=== PATIENT | female | born 1985 | race Caucasian/White ===

== ENCOUNTER 2017-01-09 12:32 | Emergency (ER) | payer MEDICAID, OTHER, SELFPAY ==
[2017-01-09 12:55] VITALS: RESP 18; TEMP 99; O2SAT 100
[2017-01-09 13:07] VITALS: BMI 25.8
[2017-01-09] MEDS ORDERED: Sodium Chloride 0.9% 1,000 ML IV STA (13:13)
[2017-01-09 13:24] LABS: PH,URINE 5.5 (4.7-8.0); URINE BILIRUBIN NEGATIVE (NEGATIVE); URINE BLOOD MODERATE (NEGATIVE); URINE GLUCOSE (UA) NEGATIVE (NEGATIVE); URINE KETONE TRACE mg/dL (NEGATIVE); URINE LEUKOCYTE ESTERASE NEGATIVE Leu/uL (NEGATIVE); URINE PROTEIN TRACE mg/dL (<30 mg/dL); URINE UROBILINOGEN 0.2 E.U./dL (<1 E.U./dL)
[2017-01-09 13:28] LABS: URINE APPEARANCE CLOUDY (CLEAR); URINE COLOR YELLOW (YELLOW)
[2017-01-09 13:56] LABS: URINE BACTERIA MOD (NEG); URINE EPITHELIAL CELLS 0 - 2 /hpf (0-5)
[2017-01-09 13:57] LABS: URINE WBC 0 - 2 /hpf (0-6)
[2017-01-09 14:02] LABS: BASO # 0.02 K/mm3 (0.0-2.0); BASO % 0.2 % (0.0-3.0); EOS % 0.1 % (1.5-5.0); GRAN # 10.78 (1.4-6.5); GRAN % 82.7 % (50.0-68.0); HEMATOCRIT 38.5 % (36.0-48.0); LYMPH # 1.9 (1.2-3.4); LYMPH % 14.4 % (22.0-35.0); MEAN CELL VOLUME 86.1 fl (80.0-105.0); MEAN CORPUSCULAR HGB CONC 32.5 g/dl (31.0-37.0); MEAN PLATELET VOLUME 9.8 fl (7.0-11.0); MONO # 0.3 (0.1-0.6); MONO % 2.6 % (1.0-6.0); RED CELL DISTRIBUTION WIDTH 13.3 % (11.5-14.5)
[2017-01-09 14:25] LABS: ALB/GLOB RATIO 1.2 (1.1-1.8); ALKALINE PHOSPHATASE 62 U/L (38-126); ALT/SGPT 35 U/L (7-56); AST/SGOT 32 U/L (14-36); BILIRUBIN,TOTAL 0.5 mg/dL (0.2-1.3); BLOOD UREA NITROGEN 9 mg/dL (7-21); CALCIUM 9.6 mg/dL (8.4-10.5); CARBON DIOXIDE 23 mmol/L (21-33); CHLORIDE 106 mmol/L (98-107); GFR AFRICAN-AMERICAN > 60; GLUCOSE,RANDOM 103 mg/dL (70-110); POTASSIUM 4.2 mmol/L (3.6-5.0); SODIUM 141 mmol/L (132-148); TOTAL PROTEIN 8.2 g/dL (5.8-8.3)
[2017-01-09] MEDS ORDERED: Morphine 2 mg/ml ISec IVP STA (14:47)
--- NOTE | 2017-01-09 16:07 | ED PDOC ---
Arrival/HPI - General Chief Complaint: Abdominal Pain Time Seen by Provider: 01/09/17 12:42 Historian: Patient - History of Present Illness Narrative History of Present Illness (Text): 01/09/17 16:05 32 y/o female presents to the ED complaining of left flank pain since 8 am. Pain is sharp, constant, and radiates to the LLQ. Pt states she had one episode of vomiting since then. She denies pain with urination, urinary frequency or urgency. Denies fever, chills, blood in the urine. States she has a hx of kidney stone from 20 yrs ago. Pt took Ibuprofen earlier this morning and had temporary relief of pain. Past Medical History - Renal Hx Kidney Stones: Yes - Psychiatric Hx Substance Use: No - Surgical History Hx Thyroidectomy: Yes - Anesthesia Hx Anesthesia: Yes Hx Anesthesia Reactions: No Hx Malignant Hyperthermia: No Family/Social History - Physician Review Nursing Documentation Reviewed: Yes Family/Social History: Unknown Family HX Smoking Status: Never Smoked Hx Alcohol Use: No Hx Substance Use: No Allergies/Home Meds Allergies/Adverse Reactions: Allergies No Known Allergies Allergy (Verified 01/09/17 13:08) Physical Exam Vital Signs Temp Pulse Resp BP Pulse Ox 01/09/17 12:54 99.0 F 80 18 132/70 100 Medical Decision Making ED Course and Treatment: 01/09/17 Left flank pain. Rule out renal colic. Toradol given for pain. On reassessment pain persists. Morphine ordered. On reassessment pt states pain resolved. CT scan showed enlargement of left ureter but no kidney stone. As per report, cannot rule out stricture or neoplasm. Discussed case with , who states pt can follow up with him on Wednesday for further evaluation. Dr. Bishop recommends sending pt home with analgesic. Reassessment Condition: Improved - Lab Interpretations Lab Results: 01/09/17 13:50 01/09/17 13:50 Lab Results 01/09/17 13:50: Sodium 141, Potassium 4.2, Chloride 106, Carbon Dioxide 23, Anion Gap 16, BUN 9, Creatinine 0.5 L, Est GFR ( Amer) > 60, Est GFR (Non -Af Amer) > 60, Random Glucose 103, Calcium 9.6, Total Bilirubin 0.5, AST 32, ALT 35, Alkaline Phosphatase 62, Total Protein 8.2, Albumin 4.5, Globulin 3.7, Albumin/Globulin Ratio 1.2 01/09/17 13:50: WBC 13.0 H, RBC 4.47, Hgb 12.5, Hct 38.5, MCV 86.1, MCH 28.0, MCHC 32.5, RDW 13.3, Plt Count 302, MPV 9.8, Gran % 82.7 H, Lymph % (Auto) 14.4 L, [place] % (Auto) 2.6, Eos % (Auto) 0.1 L, Baso % (Auto) 0.2, Gran # 10.78 H, Lymph # 1.9, [place] # 0.3, Eos # 0.0, Baso # 0.02 01/09/17 13:19: Urine Color Yellow, Urine Appearance Cloudy, Urine pH 5.5, Ur Specific [place] >= 1.030, Urine Protein Trace H, Urine Glucose (UA) Negative, Urine Ketones Trace H, Urine Blood Moderate H, Urine Nitrate Negative, Urine Bilirubin Negative, Urine Urobilinogen 0.2, Ur Leukocyte Esterase Negative, Urine RBC 1 - 3, Urine WBC 0 - 2, Ur Epithelial Cells 0 - 2, Urine Bacteria Mod , Urine HCG, Qual Negative - RAD Interpretation Radiology Orders: 01/09/17 13:29 ABD & PELVIS W/O PO OR IV CONT [CT] Stat - Medication Orders Current Medication Orders: Discontinued Medications Sodium Chloride (Sodium Chloride 0.9%) 1,000 mls @ 999 mls/hr IV .Q1H1M STA Stop: 01/09/17 14:13 Last Admin: 01/09/17 14:29 Dose: 999 mls/hr eMAR Start Stop Document 01/09/17 14:29 EQ (Rec: 01/09/17 14:30 EQ [id number]) Intravenous Solution Start Date 01/09/17 Start Time 14:29 Ketorolac Tromethamine (Toradol) 30 mg IVP STAT STA Stop: 01/09/17 13:20 Last Admin: 01/09/17 14:30 Dose: 30 mg MAR Pain Assessment Document 01/09/17 14:30 EQ (Rec: 01/09/17 14:30 EQ [id number]) Pain Reassessment Is this a pain reassessment? No Sleep Is patient sleeping during reassessment? No Presence of Pain Presence of Pain Yes IVP Administration Document 01/09/17 14:30 EQ (Rec: 01/09/17 14:30 EQ [id number]) Charges for Administration # of IVP Administrations 1 Morphine Sulfate (Morphine) 2 mg IVP STAT STA Stop: 01/09/17 14:48 Last Admin: 01/09/17 15:13 Dose: 2 mg MAR Pain Assessment Document 01/09/17 15:13 EQ (Rec: 01/09/17 15:14 EQ [id number]) Pain Reassessment Is this a pain reassessment? No Sleep Is patient sleeping during reassessment? No Presence of Pain Presence of Pain Yes IVP Administration Document 01/09/17 15:13 EQ (Rec: 01/09/17 15:14 EQ [id number]) Charges for Administration # of IVP Administrations 1 Ondansetron HCl (Zofran Inj) 4 mg IVP STAT STA Stop: 01/09/17 13:20 Last Admin: 01/09/17 14:30 Dose: 4 mg IVP Administration Document 01/09/17 14:30 EQ (Rec: 01/09/17 14:30 EQ [place] [id number]) Charges for Administration # of IVP Administrations 1 Disposition/Present on Arrival - Present on Arrival Any Indicators Present on Arrival: No History of DVT/PE: No History of Uncontrolled Diabetes: No Urinary Catheter: No History of Decub. Ulcer: No History Surgical Site Infection Following: None - Disposition Have Diagnosis and Disposition been Completed?: Yes Diagnosis: Flank pain Disposition: HOME/ ROUTINE Disposition Time: 18:10 Patient Plan: Discharge Patient Problems: Current Active Problems Problem Status Onset Flank pain Acute Condition: STABLE Discharge Instructions (ExitCare): Flank Pain (ED) Print Language: YI Additional Instructions: Take medication as directed. Follow up with urologist Dr. Arjun Bishop in 2 days. Pt is advised to call first. (Dr. Bishop's number given) Return to the ED if symptoms worsen or if new symptoms such as fever develops. Prescriptions: Naproxen 500 mg PO BID PRN #20 tab PRN Reason: Pain, Moderate (4-7) oxyCODONE/Acetaminophen [Percocet 5/325 mg Tab] 1 ea PO TID PRN #6 tab PRN Reason: Pain, Severe (8-10) Referrals: Rubén Greenwood MD [Primary Care Provider] - Follow up with primary Cesar Bishop MD [Staff Provider] - Follow up with primary
--- NOTE | 2017-01-09 16:47 | CT ---
PROCEDURE: CT Abdomen and Pelvis without Oral or IV contrast. HISTORY: flank pain COMPARISON: None available TECHNIQUE: Contiguous axial images of the abdomen and pelvis. No oral or IV contrast administered. Coronal and Sagittal reformats generated and reviewed. Radiation dose: Total exam DLP = 721.92 mGy-cm. This CT exam was performed using one or more of the following dose reduction techniques: Automated exposure control, adjustment of the mA and/or kV according to patient size, and/or use of iterative reconstruction technique. FINDINGS: There is limited evaluation of the solid organs without the administration of IV contrast. LOWER THORAX: Bibasilar atelectasis. No visible pleural effusion or pneumothorax. LIVER: Unremarkable unenhanced appearance. GALLBLADDER AND BILE DUCTS: Unremarkable unenhanced appearance. PANCREAS: Unremarkable unenhanced appearance. SPLEEN: Unremarkable unenhanced appearance. ADRENALS: Unremarkable unenhanced appearance. KIDNEYS AND URETERS: 3 mm calculus at the level the right UVJ may reflect recently passed calculus. No right-sided hydronephrosis or hydroureter. Enlargement of the left ureter without evidence of obstructing calculus. Etiology of enlargement is uncertain however stricture or neoplasm must be excluded. BLADDER: See above. REPRODUCTIVE: Uterus is present. IUD. APPENDIX: The appendix appears within normal limits of caliber. No secondary signs of acute appendicitis. BOWEL: The stomach is nondistended. Lack of oral contrast limits evaluation for bowel pathology. The bowel loops appear within normal limits of caliber without evidence of intestinal obstruction. PERITONEUM: No significant free fluid. No definite free air. LYMPH NODES: No bulky lymphadenopathy identified. VASCULATURE: No aortic aneurysm. BONES: No acute osseous abnormality is detected. OTHER FINDINGS: None. IMPRESSION: 3 mm calculus at the level the right UVJ may reflect recently passed calculus. No right-sided hydronephrosis or hydroureter. Enlargement of the left ureter without evidence of obstructing calculus. Etiology of enlargement is uncertain however stricture or neoplasm must be excluded.
[2017-01-09 18:32] VITALS: BP 103/57; PULSE 71
== END 2017-01-09 18:35 | disposition home or self-care (01) ==
LOC: ED 12:32
DX: R10.9 Unspecified abdominal pain (principal)
CPT/HCPCS: 74176; 80053; 81001; 84703; 85025; 87086; 96374; 96375; 99284; J1885; J2270; J2405; J7040